=== PATIENT | male | born 1970 | race Caucasian/White ===

== ENCOUNTER 2024-09-27 12:03 | Day surgery (SDC) | payer OTHER ==
[2024-09-27 13:23] VITALS: TEMP 97.9
[2024-09-27] MEDS: LACTATED RINGERS 1,000 ML IV SCH (13:31)
[2024-09-27] MEDS: IV FLUID CONTINUATION 1,000 ML IV ONE (13:32)
[2024-09-27] MEDS ORDERED: LIDOCAINE 1% INJ 10MG/ML (20 ML MDV) ONE (14:49)
[2024-09-27] MEDS ORDERED: PROPOFOL 10 MG/ML 20 ML VIAL IV ONE (14:49)
--- NOTE | 2024-09-27 15:19 | P.PCN ---
Date of Procedure: 09/27/24 Procedure(s) Performed: BRIEF HISTORY: Patient is a 54-year-old pleasant white male scheduled for an elective colonoscopy as a part of evaluation of positive Cologuard/screening for colon cancer PROCEDURE PERFORMED: Colonoscopy with snare polypectomy. PREOPERATIVE DIAGNOSIS: Positive Cologuard/screening for colon cancer. IV sedation per Anesthesia. PROCEDURE: After informed consent was obtained, the patient, was brought into the endoscopy unit. IV sedation was administered by Anesthesia under continuous monitoring. Digital rectal examination was normal. Initially the Olympus CF-160 flexible video colonoscope was then inserted in the rectum, gradually advanced into the cecum without any difficulty. Careful examination was performed as the scope was gradually being withdrawn. Ileocecal valve and the appendiceal orifice were visualized and appeared normal. Prep was excellent. Mucosa of the cecum, appeared normal. The ascending colon there was a 5 mm polyp that was removed by cold snare polypectomy. In the transverse colon there was a 1 cm polyp removed by hot snare polypectomy. Rest of the ascending colon, transverse colon, descending colon, sigmoid colon, and rectum appeared normal. Retroflexion was performed in the rectum and no lesions were seen. The patient tolerated the pro cedure well. IMPRESSION: 5 mm ascending colon polyp status post cold snare polypectomy 1 cm transverse colon polyp status post hot snare polypectomy Rest of the colon appeared normal RECOMMENDATIONS: Findings of this examination were discussed with the patient as well as his family. He was advised to follow-up with the biopsy results. If the biopsy reveals adenoma he can have repeat colonoscopy in 5 years..
[2024-09-27 15:37] VITALS: BP 145/94; PULSE 65; RESP 18
== END 2024-09-27 15:55 | disposition home or self-care (01) ==
LOC: ORWHC2ENDO 12:03
PROVIDERS: ATTEND Internal Medicine Gastroenterology
DX: D12.3 Benign neoplasm of transverse colon (principal); E78.5 Hyperlipidemia, unspecified; F17.200 Nicotine dependence, unspecified, uncomplicated
CPT/HCPCS: 88305; 45385; J2003; J2704